=== PATIENT | male | born 2000 | race Hispanic/Latino ===

== ENCOUNTER 2024-01-01 02:41 | Emergency (ER) | payer SELFPAY | END 2024-01-01 03:05 | LOC: NAV ERS 02:41 → EEVIPCON 02:41 → NAV ERS 03:05 | DX: S61.012A Laceration without foreign body of left thumb without damage to nail, initial encounter (principal); L70.9 Acne, unspecified; V89.2XXA Person injured in unspecified motor-vehicle accident, traffic, initial encounter | CPT/HCPCS: 12001; 99282 ==